=== PATIENT | female | born 1985 | race Caucasian/White ===

== ENCOUNTER 2016-08-08 14:15 | Inpatient (IN) | payer OTHER ==
[~2016-08-08] VITALS: Ht 170.2 cm; Wt 69.4 kg
[~2016-08-08 14:15] MED LIST: 'PARAFON FORTE500 M1 PO; BACTRIM DS 8001 TA1 PO; BIRTH CONTROL1 EAC1; MIRENA52 MG IU; MOTRIN800 MG PO; NAPROSYN500 MG PO; NKHM PO; NORCO 10-325 T1 EACH PO; VOLTAREN50 M1 PO; ZYRTEC10 M2 PO
[2016-08-08 14:29] VITALS: BP 113/87
[2016-08-08 15:12] LABS: HEMATOCRIT 33.4 % (37.0-47.0); HEMOGLOBIN 11.5 g/dl (12.0-16.0); MEAN CELL VOLUME 92.3 fl (81.0-99.0); MEAN CORPUSCULAR HGB 31.8 pg (27.0-31.0); MEAN CORPUSCULAR HGB CONC 34.4 g/dl (33.0-37.0); MEAN PLATELET VOLUME 10.3 fl (9.6-12.3); PLATELET COUNT AUTOMATED 215 10*3/uL (130-400); RED BLOOD COUNT 3.62 10*6/uL (4.10-5.10); RED CELL DISTRI WIDTH 13.2 % (0-14.5); WHITE BLOOD COUNT 27.9 10*3/uL (4.8-10.8)
[2016-08-08 15:13] LABS: BILIRUBIN 1+ (NEGATIVE); BLOOD NEGATIVE (NEGATIVE); CLARITY SL CLOUDY (CLEAR); COLOR YELLOW (YELLOW); GLUCOSE NEGATIVE (NEGATIVE); KETONE TRACE (NEGATIVE); LEUKO ESTERASE TRACE (NEGATIVE); NITRITE NEGATIVE (NEGATIVE); PH >= 9.0 (5.0-9.0); PROTEIN 1+ (NEGATIVE)
[2016-08-08 15:19] LABS: URINE REFLEX COMMENT YES (NO); WBC TNTC wbc/hpf (0-5)
[2016-08-08 15:26] LABS: ALBUMIN 3.4 gm/dl (3.1-4.5); ALKALINE PHOSPHATASE 76 U/L (45-117); BILIRUBIN, TOTAL 0.7 mg/dl (0.2-1.0); BUN 9 mg/dl (7-24); CARBON DIOXIDE 25 mmol/L (21-32); CHLORIDE 103 mmol/L (98-107); EST GLOM FILT AFRICAN AMERICAN > 60 ml/min; GLUCOSE 133 mg/dL (65-99); POTASSIUM 3.1 mmol/L (3.5-5.1); SGOT/AST 16 IU/L (3-35); SGPT/ALT 22 U/L (12-78); SODIUM 137 mmol/L (136-145); TOTAL PROTEIN 7.9 gm/dL (6.4-8.2)
[2016-08-08 15:30] LABS: LYMPHOCYTE # 0.8 10*3/uL (1.3-4.4); MONOCYTE # 1.7 10*3/uL (0.1-1.0); NEUTROPHIL # 25.4 10*3/uL (2.3-7.9); NEUTROPHILS 91 % (47-73); PLATELET SUFFICIENCY NORMAL (NORMAL); TOTAL CELLS COUNTED 100 #CELLS
[2016-08-08 15:44] VITALS: BP 102/60
[2016-08-08 16:36] VITALS: BP 107/60
[2016-08-08 17:04] VITALS: BP 98/60
[2016-08-08 18:30] LABS: CPK 51 U/L (26-192)
[2016-08-08 18:39] LABS: CKMB < 0.5 ng/ml (0.5-3.6); TROPONIN I < 0.015 ng/ml (<0.045)
[2016-08-08 20:00] VITALS: BP 92/60
[2016-08-09] VITALS: BP 110/74
[2016-08-09 00:51] LABS: CKMB < 0.5 ng/ml (0.5-3.6); CPK 46 U/L (26-192); TROPONIN I < 0.015 ng/ml (<0.045)
[2016-08-09 05:58] LABS: BASO % 0.2 % (0.0-1.0); EOS # 0.2 10*3/uL (0.0-0.4); EOS % 1.1 % (1.0-4.0); HEMATOCRIT 28.1 % (37.0-47.0); IG # 0.1 10*3/uL (0.0-0.1); LYMPH # 1.4 10*3/uL (1.3-4.4); LYMPH % 10.5 % (27.0-41.0); MEAN CELL VOLUME 94.3 fl (81.0-99.0); MEAN CORPUSCULAR HGB 31.5 pg (27.0-31.0); MEAN CORPUSCULAR HGB CONC 33.5 g/dl (33.0-37.0); MEAN PLATELET VOLUME 10.4 fl (9.6-12.3); MONO % 6.9 % (3.0-9.0); NEUT # 11.1 10*3/uL (2.3-7.9); NEUT % 80.9 % (47.0-73.0); PLATELET COUNT AUTOMATED 169 10*3/uL (130-400); RED BLOOD COUNT 2.98 10*6/uL (4.10-5.10); RED CELL DISTRI WIDTH 13.4 % (0-14.5); WHITE BLOOD COUNT 13.7 10*3/uL (4.8-10.8)
[2016-08-09 06:03] LABS: HEMOGLOBIN 9.4 g/dl (12.0-16.0)
[2016-08-09 06:10] LABS: CPK 38 U/L (26-192)
[2016-08-09 06:11] LABS: CKMB < 0.5 ng/ml (0.5-3.6); TROPONIN I < 0.015 ng/ml (<0.045)
[2016-08-09 06:26] LABS: BUN 8 mg/dl (7-24); CARBON DIOXIDE 26 mmol/L (21-32); CHLORIDE 109 mmol/L (98-107); CHOLESTEROL 61 mg/dL (<200); EST GLOM FILT AFRICAN AMERICAN > 60 ml/min; GLUCOSE 129 mg/dL (65-99); POTASSIUM 3.4 mmol/L (3.5-5.1); SODIUM 141 mmol/L (136-145); TRIGLYCERIDES 55 mg/dl (<150); VLDL CHOLESTEROL 11 mg/dL (6-40)
[2016-08-09 06:33] LABS: FREE T4 1.15 ng/dl (0.76-1.46); HDL CHOLESTEROL 21 mg/dl (40-60); LDL CHOLESTEROL 29 mg/dL (9-159); THYROID STIM HORMONE (HS) 0.504 uIU/ml (0.358-4.75)
[2016-08-09 06:50] LABS: INTERNATIONAL NORM RATIO 1.1 (2.0-3.5)
[2016-08-09 08:00] VITALS: BP 110/60
[2016-08-09 08:00] LABS: FOLIC ACID 17.12 ng/mL (>5.38)
[2016-08-09 12:00] VITALS: BP 112/70
[2016-08-09] MEDS ORDERED: CIPRO500 MG PO (12:56)
[2016-08-09] MEDS ORDERED: ULTRAM50 MG PO (12:57)
[2016-08-09] MEDS ORDERED: ZOFRAN4 MG PO ×2 (13:00→13:01)
== END 2016-08-09 14:15 | disposition home or self-care (01) | DRG 872 ==
LOC: ED 14:15 → EDHOLD 17:07 → 5E 17:07
PROVIDERS: Internal Medicine; Physician Assistant
DX: A41.9 Sepsis, unspecified organism (principal); M54.9 Dorsalgia, unspecified; N12 Tubulo-interstitial nephritis, not specified as acute or chronic; E87.6 Hypokalemia; Z88.0 Allergy status to penicillin; Z82.3 Family history of stroke; Z83.3 Family history of diabetes mellitus; Z82.49 Family history of ischemic heart disease and other diseases of the circulatory system; Z88.1 Allergy status to other antibiotic agents; Z79.899 Other long term (current) drug therapy; Z72.0 Tobacco use; Z87.442 Personal history of urinary calculi

== ENCOUNTER 2022-05-30 18:16 | Emergency (ER) | payer OTHER ==
[~2022-05-30] VITALS: Ht 170.1 cm; Wt 90.7 kg
[~2022-05-30 18:16] MED LIST changes: +CIPRO500 MG PO; +ULTRAM50 MG PO; +ZOFRAN4 MG PO
[2022-05-30 18:48] LABS: BASO % 0.2 % (0.0-1.0); EOS # 0.1 10*3/uL (0.0-0.4); EOS % 0.5 % (1.0-4.0); HEMATOCRIT 46.5 % (37.0-47.0); LYMPH # 1.1 10*3/uL (1.3-4.4); LYMPH % 11.3 % (27.0-41.0); MEAN CELL VOLUME 99.6 fl (81.0-99.0); MEAN CORPUSCULAR HGB 34.3 pg (27.0-31.0); MEAN CORPUSCULAR HGB CONC 34.4 g/dl (33.0-37.0); MONO # 0.4 10*3/uL (0.1-1.0); MONO % 4.4 % (3.0-9.0); NEUT % 83.2 % (47.0-73.0); PLATELET COUNT AUTOMATED 161 10*3/uL (130-400); RED BLOOD COUNT 4.67 10*6/uL (4.10-5.10); RED CELL DISTRI WIDTH 13.2 % (0-14.5); WHITE BLOOD COUNT 9.6 10*3/uL (4.8-10.8)
[2022-05-30 19:13] LABS: ALKALINE PHOSPHATASE 84 U/L (46-116); BUN 6 mg/dl (9-23); CHLORIDE 103 mmol/L (98-107); POTASSIUM 3.7 mmol/L (3.4-5.1); SGPT/ALT 55 U/L (10-49); TOTAL PROTEIN 7.1 gm/dL (6.0-8.0)
[2022-05-30 19:30] LABS: LIPASE 868 U/L (12-53)
[2022-05-30 19:35] LABS: BILIRUBIN Negative (Negative); BLOOD Trace-Lysed (Negative); CLARITY Cloudy (Clear); COLOR Yellow (Yellow); GLUCOSE Negative (Negative); KETONE Trace (Negative); LEUKO ESTERASE 2+ (Negative); NITRITE Positive (Negative); SPECIFIC GRAVITY 1.015 (1.001-1.030); UROBILINOGEN 0.2 E.U./dl (0.0-1.0)
[2022-05-30 19:45] LABS: BACTERIA 3+; WBC 41-50 wbc/hpf (0-5)
[2022-05-31] MEDS ORDERED: BUPRENORPHINE HY8 MG SL (20:25)
[2022-05-31] MEDS ORDERED: PROVENTIL HFA6.7 GM IH (20:26)
== END 2022-05-30 21:00 | disposition left against medical advice (07) ==
LOC: ED 18:16
PROVIDERS: Nurse Practitioner Family
DX: K85.90 Acute pancreatitis without necrosis or infection, unspecified (principal); Z88.0 Allergy status to penicillin; Z88.1 Allergy status to other antibiotic agents; Z98.890 Other specified postprocedural states; Z87.891 Personal history of nicotine dependence; Z71.6 Tobacco abuse counseling

== ENCOUNTER 2022-05-31 12:29 | Inpatient (IN) | payer OTHER ==
[~2022-05-31] VITALS: Ht 172.7 cm; Wt 112.6 kg
[2022-05-31 12:41] VITALS: BP 142/96
[2022-05-31 13:21] LABS: BASO % 0.2 % (0.0-1.0); EOS % 0.2 % (1.0-4.0); HEMATOCRIT 45.2 % (37.0-47.0); LYMPH # 0.8 10*3/uL (1.3-4.4); LYMPH % 7.8 % (27.0-41.0); MEAN CELL VOLUME 100.9 fl (81.0-99.0); MEAN CORPUSCULAR HGB 34.8 pg (27.0-31.0); MEAN CORPUSCULAR HGB CONC 34.5 g/dl (33.0-37.0); MEAN PLATELET VOLUME 11.3 fl (9.6-12.3); MONO # 0.6 10*3/uL (0.1-1.0); MONO % 5.1 % (3.0-9.0); NEUT # 9.4 10*3/uL (2.3-7.9); NEUT % 86.6 % (47.0-73.0); PLATELET COUNT AUTOMATED 146 10*3/uL (130-400); RED BLOOD COUNT 4.48 10*6/uL (4.10-5.10); RED CELL DISTRI WIDTH 13.2 % (0-14.5); WHITE BLOOD COUNT 10.8 10*3/uL (4.8-10.8)
[2022-05-31 13:33] LABS: INTERNATIONAL NORM RATIO 1.1 (2.0-3.5)
[2022-05-31 13:37] LABS: ALKALINE PHOSPHATASE 75 U/L (46-116); BUN 10 mg/dl (9-23); CHLORIDE 101 mmol/L (98-107); LIPASE 560 U/L (12-53); POTASSIUM 3.2 mmol/L (3.4-5.1); SGPT/ALT 40 U/L (10-49); TOTAL PROTEIN 7.4 gm/dL (6.0-8.0)
[2022-05-31 13:44] LABS: ETHYL ALCOHOL < 3.0 mg/dl (<3)
[2022-05-31 15:40] VITALS: BP 134/84
[2022-05-31 16:17] LABS: BILIRUBIN 1+ (Negative); BLOOD 1+ (Negative); CLARITY Turbid (Clear); COLOR Orange (Yellow); GLUCOSE Negative (Negative); KETONE Trace (Negative); LEUKO ESTERASE 2+ (Negative); NITRITE Positive (Negative); SPECIFIC GRAVITY 1.025 (1.001-1.030)
[2022-05-31 16:23] LABS: URINE AMPHETAMINES Negative (1000ng/ml); URINE BARBITURATES Negative (200ng/ml); URINE BENZODIAZEPINES Negative (200ng/ml); URINE CANNABINOIDS (THC) Negative (50ng/ml); URINE COCAINE Negative (300ng/ml); URINE METHADONE Negative (300ng/ml); URINE OPIATES Positive (300ng/ml); URINE PHENCYCLIDINE Negative (25ng/ml)
[2022-05-31 16:32] LABS: BACTERIA 3+; WBC 41-50 wbc/hpf (0-5)
[2022-05-31 18:05] VITALS: BP 140/88
[2022-05-31 19:41] VITALS: BP 140/73
[2022-05-31] MEDS ORDERED: BUPRENORPHINE HY8 MG SL (20:25)
[2022-05-31] MEDS ORDERED: PROVENTIL HFA6.7 GM IH (20:26)
[2022-05-31 21:30] VITALS: BP 128/81
[2022-06-01] VITALS: BP 131/91
[2022-06-01 07:23] LABS: ALKALINE PHOSPHATASE 66 U/L (46-116); BUN 8 mg/dl (9-23); CHLORIDE 103 mmol/L (98-107); CHOLESTEROL 115 mg/dL (<200); LDL CHOLESTEROL 59 mg/dL (9-159); LIPASE 245 U/L (12-53); POTASSIUM 3.3 mmol/L (3.4-5.1); SGPT/ALT 35 U/L (10-49); THYROID STIM HORMONE (HS) 1.809 uIU/ml (0.550-4.780); TOTAL PROTEIN 6.6 gm/dL (6.0-8.0); TRIGLYCERIDES 91 mg/dl (<150)
[2022-06-01 08:00] VITALS: BP 114/79
[2022-06-01 08:06] LABS: VITAMIN D, 25-HYDROXY 8.5 ng/mL (30-100)
[2022-06-01 08:07] LABS: HBSAG Negative (Negative); HEP B CORE AB, IGM Negative (Negative)
[2022-06-01 08:42] LABS: BASO % 0.2 % (0.0-1.0); EOS # 0.2 10*3/uL (0.0-0.4); EOS % 1.9 % (1.0-4.0); HEMATOCRIT 41.4 % (37.0-47.0); LYMPH # 1.2 10*3/uL (1.3-4.4); MEAN CORPUSCULAR HGB 34.5 pg (27.0-31.0); MEAN CORPUSCULAR HGB CONC 33.8 g/dl (33.0-37.0); MEAN PLATELET VOLUME 10.8 fl (9.6-12.3); MONO # 0.6 10*3/uL (0.1-1.0); MONO % 6.9 % (3.0-9.0); NEUT # 6.8 10*3/uL (2.3-7.9); NEUT % 76.8 % (47.0-73.0); PLATELET COUNT AUTOMATED 128 10*3/uL (130-400); RED BLOOD COUNT 4.06 10*6/uL (4.10-5.10); RED CELL DISTRI WIDTH 13.2 % (0-14.5); WHITE BLOOD COUNT 8.8 10*3/uL (4.8-10.8)
[2022-06-01 12:00] VITALS: BP 147/85
[2022-06-01 16:00] VITALS: BP 134/87
[2022-06-01 20:00] VITALS: BP 129/91
[2022-06-02] VITALS: BP 125/93
[2022-06-02 00:30] VITALS: BP 120/86
[2022-06-02 06:01] LABS: ALKALINE PHOSPHATASE 60 U/L (46-116); BUN 9 mg/dl (9-23); CHLORIDE 101 mmol/L (98-107); LIPASE 114 U/L (12-53); POTASSIUM 2.9 mmol/L (3.4-5.1); SGPT/ALT 24 U/L (10-49); TOTAL PROTEIN 6.7 gm/dL (6.0-8.0)
[2022-06-02 06:13] LABS: BASO % 0.6 % (0.0-1.0); EOS # 0.2 10*3/uL (0.0-0.4); EOS % 2.7 % (1.0-4.0); LYMPH # 1.3 10*3/uL (1.3-4.4); LYMPH % 19.1 % (27.0-41.0); MEAN CELL VOLUME 103.1 fl (81.0-99.0); MEAN CORPUSCULAR HGB 35.3 pg (27.0-31.0); MEAN CORPUSCULAR HGB CONC 34.3 g/dl (33.0-37.0); MEAN PLATELET VOLUME 11.6 fl (9.6-12.3); MONO # 0.6 10*3/uL (0.1-1.0); MONO % 8.1 % (3.0-9.0); NEUT # 4.8 10*3/uL (2.3-7.9); NEUT % 69.1 % (47.0-73.0); PLATELET COUNT AUTOMATED 126 10*3/uL (130-400); RED BLOOD COUNT 3.88 10*6/uL (4.10-5.10); WHITE BLOOD COUNT 6.9 10*3/uL (4.8-10.8)
[2022-06-02 08:00] VITALS: BP 129/82
[2022-06-02 12:00] VITALS: BP 138/91
[2022-06-02 16:00] VITALS: BP 121/83
[2022-06-02 20:00] VITALS: BP 129/90
[2022-06-03] VITALS: BP 133/88
[2022-06-03 08:00] VITALS: BP 140/84
[2022-06-03 08:21] LABS: ALKALINE PHOSPHATASE 55 U/L (46-116); BUN 5 mg/dl (9-23); CHLORIDE 103 mmol/L (98-107); LIPASE 123 U/L (12-53); POTASSIUM 3.1 mmol/L (3.4-5.1); SGPT/ALT 22 U/L (10-49); TOTAL PROTEIN 6.5 gm/dL (6.0-8.0)
[2022-06-03 12:00] VITALS: BP 145/96
[2022-06-03] MEDS ORDERED: LEVOFLOXACIN750 M2 PO (12:21)
[2022-06-03] MEDS ORDERED: VITAMIN D250 MC1 PO (12:21)
[2022-06-03] MEDS ORDERED: HYDROCODONE-AC1 EAC1 PO (12:21)
[2022-06-04 17:07] LABS: HEPATITIS C ANTIBODY >11.0 (0.0-0.9)
== END 2022-06-03 13:06 | disposition home or self-care (01) | DRG 439 ==
LOC: ED 12:29 → EDHOLD 16:09 → 5E 16:09
PROVIDERS: Internal Medicine; Physician Assistant; Student in an Organized Health Care Education/Training Program; ADMIT Internal Medicine; ATTEND Internal Medicine
DX: K85.90 Acute pancreatitis without necrosis or infection, unspecified (principal); N39.0 Urinary tract infection, site not specified; E80.6 Other disorders of bilirubin metabolism; D75.89 Other specified diseases of blood and blood-forming organs; R73.9 Hyperglycemia, unspecified; R31.9 Hematuria, unspecified; F17.210 Nicotine dependence, cigarettes, uncomplicated; E87.6 Hypokalemia; K76.0 Fatty (change of) liver, not elsewhere classified; R16.0 Hepatomegaly, not elsewhere classified; R74.01 Elevation of levels of liver transaminase levels; E55.9 Vitamin D deficiency, unspecified; Z88.1 Allergy status to other antibiotic agents; Z88.0 Allergy status to penicillin; Z82.49 Family history of ischemic heart disease and other diseases of the circulatory system; Z83.3 Family history of diabetes mellitus; Z82.3 Family history of stroke; Z71.6 Tobacco abuse counseling

== ENCOUNTER → 2022-07-12 | Day surgery (SDC) | payer OTHER ==
[2022-07-09 14:21] VITALS: BP 114/93
[~2022-07-12] VITALS: Ht 170.1 cm; Wt 108.0 kg
[~2022-07-12] MED LIST changes: +BUPRENORPHINE HY8 MG SL; +COLACE100 MG PO; +HYDROCODONE-AC1 EAC1 PO; +LEVOFLOXACIN750 M2 PO; +ONDANSETRON HYDR4 M1 PO; +PROVENTIL HFA6.7 GM IH; +VITAMIN D250 MC1 PO
[2022-07-12 09:45] VITALS: BP 121/83
[2022-07-12 13:12] VITALS: BP 104/67
[2022-07-12 13:27] VITALS: BP 120/85
[2022-07-12 13:42] VITALS: BP 116/72
[2022-07-12 13:57] VITALS: BP 120/82
[2022-07-12 14:22] VITALS: BP 116/83
== END | disposition home or self-care (01) ==
LOC: SDC 07-09 14:00
PROVIDERS: ATTEND Surgery
DX: K80.10 Calculus of gallbladder with chronic cholecystitis without obstruction (principal); K85.90 Acute pancreatitis without necrosis or infection, unspecified; J45.909 Unspecified asthma, uncomplicated; I10 Essential (primary) hypertension; K21.9 Gastro-esophageal reflux disease without esophagitis; Z88.0 Allergy status to penicillin; F41.9 Anxiety disorder, unspecified; F17.210 Nicotine dependence, cigarettes, uncomplicated; Z88.8 Allergy status to other drugs, medicaments and biological substances; Z79.899 Other long term (current) drug therapy

== ENCOUNTER → 2023-08-26 | Outpatient (CLI) | payer OTHER ==
[2023-08-26 16:05] LABS: HEMATOCRIT 46.8 % (37.0-47.0); MEAN CELL VOLUME 108.8 fl (81.0-99.0); MEAN CORPUSCULAR HGB 35.3 pg (27.0-31.0); MEAN CORPUSCULAR HGB CONC 32.5 g/dl (33.0-37.0); MEAN PLATELET VOLUME 10.2 fl (9.6-12.3); PLATELET COUNT AUTOMATED 150 10*3/uL (130-400); RED CELL DISTRI WIDTH 12.1 % (0-14.5); WHITE BLOOD COUNT 6.5 10*3/uL (4.8-10.8)
[2023-08-26 16:06] LABS: MANUAL DIFF REFLEX YES
[2023-08-26 16:25] LABS: TOTAL CELLS COUNTED 100 #CELLS
[2023-08-26 16:26] LABS: PLATELET SUFFICIENCY NORMAL (NORMAL)
[2023-08-26 16:30] LABS: ALKALINE PHOSPHATASE 112 U/L (46-116); BUN 5 mg/dl (9-23); CHLORIDE 103 mmol/L (98-107); CHOLESTEROL 141 mg/dL (<200); LDL CHOLESTEROL 77 mg/dL (9-159); LIPASE 36 U/L (12-53); SGPT/ALT 176 U/L (5-49); TOTAL PROTEIN 8.2 gm/dL (6.0-8.0); TRIGLYCERIDES 120 mg/dl (<150)
[2023-08-26 16:32] LABS: POTASSIUM 3.8 mmol/L (3.4-5.1)
[2023-08-26 16:35] LABS: VITAMIN D, 25-HYDROXY 10.9 ng/mL (30-100)
== END | disposition home or self-care (01) ==
LOC: US 14:00 → LAB 14:30
PROVIDERS: ATTEND Family Medicine
DX: Z00.00 Encounter for general adult medical examination without abnormal findings (principal); Z13.6 Encounter for screening for cardiovascular disorders; I82.403 Acute embolism and thrombosis of unspecified deep veins of lower extremity, bilateral; E61.1 Iron deficiency; R73.01 Impaired fasting glucose; E55.9 Vitamin D deficiency, unspecified; E07.9 Disorder of thyroid, unspecified; E53.8 Deficiency of other specified B group vitamins; I73.9 Peripheral vascular disease, unspecified; Z87.19 Personal history of other diseases of the digestive system

== ENCOUNTER 2025-04-03 19:30 | Observation (INO) | payer BC ==
[~2025-04-03] VITALS: Ht 170.1 cm; Wt 83.9 kg
[2025-04-03 19:42] VITALS: BP 103/90
[2025-04-03 20:31] LABS: BASO # 0.0 10*3/uL (0.0-0.1); BASO % 0.2 % (0.0-1.0); EOS # 0.2 10*3/uL (0.0-0.4); EOS % 1.3 % (1.0-4.0); MEAN CELL VOLUME 100.4 fl (81.0-99.0); MEAN CORPUSCULAR HGB 36.4 pg (27.0-31.0); MEAN PLATELET VOLUME 10.8 fl (9.6-12.3); MONO # 1.1 10*3/uL (0.1-1.0); MONO % 5.9 % (3.0-9.0); NEUT # 15.5 10*3/uL (2.3-7.9); NEUT % 84.2 % (47.0-73.0); NUCLEATED RED BLOOD CELL 0.0 % (0.0-0.0); NUCLEATED RED BLOOD CELL 0.0 10*3/uL (0.0-0.0); PLATELET COUNT AUTOMATED 75 10*3/uL (130-400); RED CELL DISTRI WIDTH 15.1 % (0-14.5)
[2025-04-03 20:45] LABS: ACT PARTIAL THROMBO TIME 59.6 SECONDS (20.0-32.1)
[2025-04-03 20:57] LABS: BUN 83 mg/dl (9-23); ETHYL ALCOHOL < 3.0 mg/dl (<3); SGPT/ALT 20 U/L (5-49)
[2025-04-03] MEDS ORDERED: SODIUM CHLORIDE 0.9% 1,000 ML IV ONE (21:25)
[2025-04-03] MEDS ORDERED: HYDROmorphONE Hydrochloride 0.5 MG/0.5 ML SYRINGE IV ONE (21:35)
[2025-04-03 23:52] VITALS: BP 92/48
[2025-04-04] VITALS (18 sets, daily range): BP systolic 85–102; BP diastolic 36–54
[2025-04-04] MEDS ORDERED: SODIUM CHLORIDE 0.9% 1,000 ML IV ONE (07:00)
[2025-04-04 17:29] LABS: BUN 88.0 mg/dl (9-23); SGPT/ALT 25.0 U/L (5-49)
[2025-04-04 21:54] LABS: URINE AMPHETAMINES Negative (1000ng/ml); URINE BARBITURATES Negative (200ng/ml); URINE BENZODIAZEPINES Negative (200ng/ml); URINE CANNABINOIDS (THC) Negative (50ng/ml); URINE COCAINE Negative (300ng/ml); URINE METHADONE Negative (300ng/ml); URINE OPIATES Negative (300ng/ml); URINE PHENCYCLIDINE Negative (25ng/ml)
[2025-04-04] MEDS ORDERED: NATURE'S BLEND F1 MG PO (22:09)
[2025-04-04] MEDS ORDERED: NOREPINEPHRINE BITARTRATE/D5W 250 ML IV SCH (22:20)
[2025-04-05] VITALS (23 sets, daily range): BP systolic 91–104; BP diastolic 48–57
[2025-04-05] MEDS ORDERED: OCTREOTIDE ACETATE 100 MCG/ML VIAL SC SCH ×2 (03:01→06:00)
[2025-04-05] MEDS ORDERED: ALBUMIN 25% 100 ML IV SCH ×2 (03:01→10:00)
[2025-04-05] MEDS ORDERED: ALBUMIN 25% 25 GM/100 ML BAG IV ONE (08:55)
[2025-04-05] MEDS ORDERED: OCTREOTIDE ACETATE 1,000 MCG/5 ML VIAL IV ONE (08:55)
== END 2025-04-05 06:13 | disposition short-term general hospital (02) ==
LOC: ED 19:30 → EDHOLD 04-04 19:45
PROVIDERS: Internal Medicine; Nurse Practitioner Family; ADMIT Internal Medicine; ATTEND Internal Medicine
DX: A41.9 Sepsis, unspecified organism (principal); K72.00 Acute and subacute hepatic failure without coma; E80.6 Other disorders of bilirubin metabolism; N17.9 Acute kidney failure, unspecified; R74.01 Elevation of levels of liver transaminase levels; R16.0 Hepatomegaly, not elsewhere classified; D75.89 Other specified diseases of blood and blood-forming organs; N39.0 Urinary tract infection, site not specified; E55.9 Vitamin D deficiency, unspecified; R73.9 Hyperglycemia, unspecified; R18.8 Other ascites; D72.89 Other specified disorders of white blood cells; E87.1 Hypo-osmolality and hyponatremia; E87.8 Other disorders of electrolyte and fluid balance, not elsewhere classified; E88.09 Other disorders of plasma-protein metabolism, not elsewhere classified; I10 Essential (primary) hypertension; K21.9 Gastro-esophageal reflux disease without esophagitis; Z79.899 Other long term (current) drug therapy